=== PATIENT | female | born 1990 | race Two or more races ===

== ENCOUNTER 2021-01-30 15:19 | Emergency (ER) | payer SELFPAY ==
[~2021-01-30] VITALS: Ht 157.5 cm; Wt 59.0 kg
[2021-01-30] MEDS ORDERED: LORAZEPAM 0.5 MG TABLET PO ONE (15:30)
[2021-01-30] MEDS ORDERED: LORAZEPAM 1 MG TABLET ONE (15:38)
--- NOTE | 2021-01-30 15:59 | NUR ---
DION ABDI for c/o anxiety while driving. patient is awake, alert, oriented x3 in no distress. Ativan given as ordered. patient calmed down within 10 minutes of taking the medicine. Her and friend are at beside to drive her home. patient denies pain or SOB. States she feels better now DC, RX (INCLUDING ALL PRECAUTIONS) AND FOLLOW UP INSTRUCTIONS GIVEN AND EXPLAINED TO WHO STATES HE UNDERSTANDS ALL INSTRUCTIONS
== END 2021-01-30 16:02 | disposition home or self-care (01) ==
LOC: ER 15:19
DX: F41.0 Panic disorder [episodic paroxysmal anxiety] (principal)
CPT/HCPCS: A4663